=== PATIENT | female | born 1980 | race African-American/Black ===

== ENCOUNTER 2017-05-13 16:38 | Emergency (ER) | payer OTHER ==
[~2017-05-13] VITALS: Ht 180.3 cm; Wt 100.0 kg
[~2017-05-13 16:38] MED LIST: AMOXICILLIN/CL875 MG PO; AMOXICILLIN500 MG PO; AMOXICILLIN875 MG OR; AUGMENTIN875TAB PO; BENZONATATE200 MG PO; BIRTH CONTROL; CIPRO500 MG OR; CIPROFLOXACN500 MG PO; DEPO-PROVER150 MG/ML IM; LORTAB 5/3255 MG PO; MONISTAT 7 VA; MONONESSA PO; MUCINEX600 MG PO; MULTIVITAMI9 PO; MULTIVITAMIN OR; NAPROSYN500 MG OR; NO; OMEPRAZOLE40 MG PO; ONDANSETRON4 MG PO; PERCOCET 5/325M1 TAB PO; PREDNISONE10 MG PO; PRENATAL1 TA1 PO; PSEUDOEPHEDR30 MG PO; SILVADENE1 % EX; SPRINTEC 2828 DAY PO; ULTRAM50 M1 PO
[2017-05-13] MEDS ORDERED: FLEXERIL5 M1 PO (18:58)
[2017-05-13] MEDS ORDERED: MOTRIN400 MG PO (18:58)
[2017-05-13 19:00] VITALS: BP 117/64
== END 2017-05-13 19:00 | disposition home or self-care (01) | DRG 552 ==
LOC: ED 16:38
DX: S16.1XXA Strain of muscle, fascia and tendon at neck level, initial encounter (principal); S46.912A Strain of unspecified muscle, fascia and tendon at shoulder and upper arm level, left arm, initial encounter; Y04.2XXA Assault by strike against or bumped into by another person, initial encounter; Y93.89 Activity, other specified; Y92.199 Unspecified place in other specified residential institution as the place of occurrence of the external cause; Y99.0 Civilian activity done for income or pay

== ENCOUNTER 2018-07-31 19:04 | Emergency (ER) | payer OTHER ==
[~2018-07-31] VITALS: Ht 180.3 cm; Wt 102.0 kg
[~2018-07-31 19:04] MED LIST changes: +FLEXERIL5 M1 PO; +MOTRIN400 MG PO
[2018-07-31 20:22] LABS: URINE BILIRUBIN - DIPSTICK NEGATIVE (NEGATIVE); URINE BLOOD DIPSTICK NEGATIVE (NEGATIVE); URINE COLOR YELLOW; URINE GLUCOSE - DIPSTICK NEGATIVE (NEGATIVE); URINE KETONE NEGATIVE (NEGATIVE); URINE LEUK ESTERASE NEGATIVE (NEGATIVE); URINE NITRITE - DIPSTICK NEGATIVE (Negative); URINE PROTEIN - DIPSTICK NEGATIVE (NEG-TRACE); URINE UROBILINOGEN - DIPSTICK 0.2 E.U./dL (0.2)
[2018-07-31 20:23] LABS: HEMATOCRIT 37.2 % (37.0-47.0); HEMOGLOBIN 12.1 g/dl (12.0-16.0); IMMATURE GRANULOCYTES 0.4 % (0.0-5.0); MEAN CELL VOLUME 90.1 fL CALC (80.0-100.0); MEAN CORPUSCULAR HGB 29.3 pG CALC (26.0-32.0); MEAN CORPUSCULAR HGB CONC 32.5 g/L CALC (32.0-36.0); NEUT# 3.3 thou/uL (2.00-7.15); RED BLOOD COUNT 4.13 mill/uL (4.20-5.60); RED CELL DISTRI WIDTH 13.5 % (11.5-15.5)
[2018-07-31 20:24] LABS: URINE CLARITY CLEAR
[2018-07-31 21:04] LABS: ALBUMIN 3.9 g/dL (3.2-5.0); ALKALINE PHOSPHATASE 43 u/l (38-126); ANION GAP 11 (6-22 (CALC)); BILIRUBIN, TOTAL 0.2 mg/dL (0.0-1.4); BUN 7 mg/dL (7-17); BUN/CREATININE RATIO 12 (12-20 (CALC)); CARBON DIOXIDE 27 mmol/l (22-30); CHLORIDE 105 mmol/l (95-108); CREATININE 0.6 mg/dL (0.5-1.0); GFR > 60 ML/MIN (>=60 (CALC)); GFR FOR AFR.AMER. > 60 ML/MIN (>=60 (CALC)); SGOT/AST 18 u/l (14-36); SODIUM 139 mmol/l (137-146); TOTAL PROTEIN 6.6 g/dL (6.3-8.2)
[2018-07-31 21:14] LABS: INFLUENZA A NONE DETECTED (NONE DETECT); INFLUENZA B NONE DETECTED (NONE DETECT)
[2018-08-01] MEDS ORDERED: FIORICET PO (00:19)
[2018-08-01 00:30] VITALS: BP 106/65
== END 2018-08-01 00:30 | disposition home or self-care (01) ==
LOC: ED 19:04
PROVIDERS: Emergency Medicine
DX: R07.89 Other chest pain (principal); R11.0 Nausea; R51 Headache

== ENCOUNTER 2024-04-08 17:29 | Emergency (ER) | payer OTHER, BC ==
[~2024-04-08] VITALS: Ht 180.3 cm; Wt 104.3 kg
[~2024-04-08 17:29] MED LIST changes: +FIORICET PO
[2024-04-08] MEDS ORDERED: IBUPROFEN 200 MG/TAB PO ONE (17:35)
[2024-04-08] MEDS ORDERED: ACETAMINOPHEN 500 MG TAB PO ONE (17:35)
[2024-04-08 23:33] VITALS: BP 157/96
== END 2024-04-08 23:33 | disposition home or self-care (01) | DRG 552 ==
LOC: ED 17:29
DX: M54.2 Cervicalgia (principal); M54.6 Pain in thoracic spine; M54.50 Low back pain, unspecified; M25.522 Pain in left elbow; V49.40XA Driver injured in collision with unspecified motor vehicles in traffic accident, initial encounter